=== PATIENT | female | born 1980 | race Caucasian/White ===

== ENCOUNTER 2019-07-07 18:17 | Observation (INO) ==
[2019-07-07 19:19] LABS: Basophils # 0.1 K/mcL (0.0-0.2); Basophils % 0.5 %; Eosinophils # 0.3 K/mcL (0.0-0.6); Eosinophils % 2.7 %; Hematocrit 39.7 % (35.3-44.9); Hemoglobin 12.7 g/dL (11.5-15.4); Lymphocytes % 17.7 %; Mean Corpuscular Hemoglobin 28.8 pg (28.0-33.3); Mean Platelet Volume 10.6 fL (9.4-12.4); Monocytes # 0.8 K/mcL (0.0-1.3); Monocytes % 7.1 %; Neutrophils # 8.1 K/mcL (1.6-8.9); Platelet Count 282 K/mcL (140-400); Red Blood Count 4.41 M/mcL (3.82-4.97); Red Cell Distribution Width 13.1 % (11.5-14.5); White Blood Count 11.4 K/mcL (4.3-11.1)
[2019-07-07 19:24] LABS: INR 0.9; Prothrombin Time 10.5 Seconds (9.4-12.1)
[2019-07-07 19:27] LABS: Alanine Aminotransferase 26 Units/L (7-52); Albumin 4.4 g/dL (3.5-5.7); Albumin/Globulin Ratio 1.6 (1.1-2.2); Alkaline Phosphatase 96 Units/L (34-104); Aspartate Amino Transferase 23 Units/L (13-39); BUN/Creatinine Ratio 20 (6-26); Bilirubin,Direct 0.1 mg/dL (0.0-0.2); Bilirubin,Indirect 0.2 mg/dL (0.0-1.0); Bilirubin,Total 0.3 mg/dL (0.3-1.0); Blood Urea Nitrogen 20 mg/dL (6-20); Calcium 9.3 mg/dL (8.6-10.3); Carbon Dioxide 24 mEq/L (23-29); Chloride 102 mEq/L (98-107); Globulin 2.7 g/dL (2.4-3.5); Glucose 111 mg/dL (70-105); Lipase 12 Units/L (11-82); Osmolality,Calculated 283 (280-300); Potassium 3.8 mEq/L (3.5-5.1); Sodium 135 mEq/L (136-145); Total Protein 7.1 g/dL (6.4-8.9); Troponin I < 0.03 ng/mL (< 0.04); eGFR For African Americans > 60 (> 60); eGFR For Non-African Americans > 60 (> 60)
[2019-07-07 19:37] LABS: D-Dimer < 215 ng/mLFEU (0-500)
[2019-07-07 19:40] LABS: Bilirubin,Urine Negative (Negative); Blood,Urine Negative (Negative); Clarity,Urine Clear (Clear); Color,Urine Yellow (Yellow); Glucose,Urine (UA) Normal (Normal); Ketones,Urine Negative (Negative); Leukocyte Esterase,Urine Negative (Negative); Nitrite,Urine Negative (Negative); PH,Urine 6.5 pH Units (5.0-8.0); Protein,Urine Trace mg/dL (Neg-Trace); Specific Gravity,Urine 1.026 (1.010-1.025); Urobilinogen,Urine Normal (Normal)
[2019-07-07] MEDS ORDERED: 0.9 % Sodium Chloride 1,000 ML IVC ONE ×2 (19:45→21:12)
[2019-07-07] MEDS ORDERED: Isovue-370 500 ML BOTTLE IVP ONE (20:45)
[2019-07-07 21:40] LABS: Troponin I < 0.03 ng/mL (< 0.04)
[2019-07-07 21:59] LABS: Thyroid Stimulating Hormone 2.037 mcIU/mL (0.340-5.600)
[2019-07-07] MEDS ORDERED: Ondansetron ODT 4 MG TAB.RAPDIS SL PRN (22:59)
[2019-07-07] MEDS ORDERED: Naloxone 0.4 MG/ML INJ IVP PRN (22:59)
[2019-07-07] MEDS ORDERED: 0.9 % Sodium Chloride 1,000 ML IVC SCH (23:00)
[2019-07-07] MEDS ORDERED: Acetaminophen 325 MG TABLET PO PRN (23:06)
[2019-07-07 23:25] LABS: Ethanol < 10 mg/dL (Less than 10)
[2019-07-07 23:32] LABS: Amphetamine Screen,Urine Negative ng/mL (Cutoff=1000); Barbiturate Screen,Urine Negative ng/mL (Cutoff=200); Benzodiazepines Screen,Urine Negative ng/mL (Cutoff=200); Cannabinoid Screen,Urine Negative ng/mL (Cutoff = 50); Cocaine Screen,Urine Negative ng/mL (Cutoff= 300); Opiate Screen,Urine Negative ng/mL (Cutoff=300); Phencyclidine Screen,Urine Negative ng/mL (Cutoff=25)
[2019-07-08] MEDS ORDERED: Nitroglycerin 0.4 MG TAB.SUBL SL PRN (00:07)
[2019-07-08] MEDS ORDERED: Aspirin 325 MG TABLET PO ONE (00:07)
[2019-07-08 00:17] LABS: Magnesium 1.7 mg/dL (1.6-2.6)
[2019-07-08] MEDS: Gabapentin 300 MG CAPSULE PO SCH ×4 (00:51→21:54)
[2019-07-08] MEDS: Levalbuterol 1 PUFF INHALER IH SCH ×5 (02:17→22:45)
[2019-07-08 04:01] LABS: Hematocrit 38.9 % (35.3-44.9); Hemoglobin 12.7 g/dL (11.5-15.4); Mean Corpuscular HGB Conc 32.6 g/dL (31.6-35.5); Mean Corpuscular Hemoglobin 29.5 pg (28.0-33.3); Mean Corpuscular Volume 90.3 fL (83.0-100.0); Mean Platelet Volume 10.6 fL (9.4-12.4); Platelet Count 236 K/mcL (140-400); Red Blood Count 4.31 M/mcL (3.82-4.97); White Blood Count 10.1 K/mcL (4.3-11.1)
[2019-07-08 04:20] LABS: BUN/Creatinine Ratio 20 (6-26); Blood Urea Nitrogen 15 mg/dL (6-20); Calcium 8.6 mg/dL (8.6-10.3); Carbon Dioxide 23 mEq/L (23-29); Chloride 105 mEq/L (98-107); Glucose 123 mg/dL (70-105); Osmolality,Calculated 284 (280-300); Potassium 3.9 mEq/L (3.5-5.1); Sodium 136 mEq/L (136-145); eGFR For African Americans > 60 (> 60); eGFR For Non-African Americans > 60 (> 60)
[2019-07-08 07:24] LABS: Adenovirus Not Detected (Not Detect); Bordetella Pertussis Not Detected (Not Detect); Chlamydophila pneumoniae Not Detected (Not Detect); Coronavirus 229E Not Detected (Not Detect); Coronavirus HKU1 Not Detected (Not Detect); Coronavirus NL63 Not Detected (Not Detect); Coronavirus OC43 Not Detected (Not Detect); Human Metapneumovirus Not Detected (Not Detect); Human Rhinovirus/Enterovirus Not Detected (Not Detect); Influenza A Subtype 2009 H1 Not Detected (Not Detect); Influenza B Not Detected (Not Detect); Mycoplasma pneumoniae Not Detected (Not Detect); Parainfluenza Virus 1 Not Detected (Not Detect); Parainfluenza Virus 2 Not Detected (Not Detect); Parainfluenza Virus 3 Not Detected (Not Detect); Parainfluenza Virus 4 Not Detected (Not Detect); Respiratory Syncytial Virus Not Detected (Not Detect)
[2019-07-08] MEDS: predniSONE 20 MG TABLET PO SCH (08:56)
[2019-07-08] MEDS: Aspirin 81 MG TAB.CHEW PO SCH (08:56)
[2019-07-08] MEDS: Budesonide/Formoterol 160/4.5 1 PUFF INH IH SCH ×3 (10:28→22:45)
[2019-07-08] MEDS: Azelastine 0.1% Nasal Spray 30 ML BOTTLE NS SCH ×2 (10:33→21:54)
[2019-07-08] MEDS: Fluticasone Propionate Nasal 50 MCG/SPRAY BOTTLE NS SCH ×2 (10:33→21:54)
[2019-07-08] MEDS ORDERED: *HR* Acetaminophen w/Cod 300-30 mg 1 TAB TABLET PO PRN (12:50)
[2019-07-08] MEDS: *HR* Metoprolol 5 MG/5 ML VIAL IVP PRN (15:30)
[2019-07-08] MEDS ORDERED: Morphine Sulfate 2 MG/ML SYRINGE IVP ONE (15:36)
[2019-07-08] MEDS ORDERED: Ketorolac 30 MG/ML VIAL IVP ONE (16:32)
[2019-07-09] MEDS: *HR* Metoprolol 5 MG/5 ML VIAL IVP PRN (00:39)
[2019-07-09] MEDS: Levalbuterol 1 PUFF INHALER IH SCH ×2 (03:54→10:52)
[2019-07-09 05:09] VITALS: BP 123/79
[2019-07-09] MEDS ORDERED: *HR* Enoxaparin 40 MG/0.4 ML SYRINGE SQ SCH (06:00)
[2019-07-09] MEDS: Aspirin 81 MG TAB.CHEW PO SCH (08:41)
[2019-07-09] MEDS: predniSONE 20 MG TABLET PO SCH (08:41)
[2019-07-09] MEDS: Gabapentin 300 MG CAPSULE PO SCH (08:41)
[2019-07-09] MEDS: Azelastine 0.1% Nasal Spray 30 ML BOTTLE NS SCH (09:26)
[2019-07-09] MEDS: Fluticasone Propionate Nasal 50 MCG/SPRAY BOTTLE NS SCH (09:26)
[2019-07-09] MEDS: Budesonide/Formoterol 160/4.5 1 PUFF INH IH SCH (10:51)
== END 2019-07-09 12:47 | disposition home or self-care (01) ==
LOC: EMEROOARM 18:17 → 2NENU 18:17 → SUATTDRO 23:10 → 2NENU 23:22
PROVIDERS: ADMIT Family Medicine; ATTEND Family Medicine